=== PATIENT | female | born 1990 | race African-American/Black ===

== ENCOUNTER 2018-01-11 12:02 | Emergency (ER) | payer MEDICAID ==
[~2018-01-11] VITALS: Ht 167.6 cm; Wt 81.6 kg
[2018-01-11 12:16] VITALS: BP 116/82
== END 2018-01-11 15:18 | disposition home or self-care (01) ==
LOC: ER 12:02
DX: O20.9 Hemorrhage in early pregnancy, unspecified (principal); O99.331 Smoking (tobacco) complicating pregnancy, first trimester; Z3A.01 Less than 8 weeks gestation of pregnancy
CPT/HCPCS: 36415; 84702

== ENCOUNTER 2019-04-07 02:45 | Emergency (ER) | payer MEDICAID ==
[~2019-04-07] VITALS: Ht 170.2 cm; Wt 80.7 kg
[2019-04-07] MEDS ORDERED: ACETAMINOPHEN 500 MG TAB PO ONE (03:00)
[2019-04-07 03:07] VITALS: BP 123/80
== END 2019-04-07 06:41 | disposition left against medical advice (07) ==
LOC: ER 02:48
DX: M79.672 Pain in left foot (principal); Z53.21 Procedure and treatment not carried out due to patient leaving prior to being seen by health care provider; X58.XXXA Exposure to other specified factors, initial encounter; Y93.02 Activity, running; Y92.89 Other specified places as the place of occurrence of the external cause; Y99.8 Other external cause status

== ENCOUNTER 2024-09-24 15:24 | Emergency (ER) | payer MEDICAID, OTHER ==
[~2024-09-24] VITALS: Ht 167.6 cm; Wt 81.0 kg
[2024-09-24 16:05] VITALS: TEMP 98
[2024-09-24] MEDS: KETOROLAC TROMETH 60MG/2ML VIAL IM STA (16:38)
[2024-09-24] MEDS: HYDROcodone-ACET 5/325MG TAB PO ONE (16:45)
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
[2024-09-24 19:03] VITALS: BP 133/84; PULSE 85; RESP 20; O2SAT 99
== END 2024-09-24 19:05 | disposition home or self-care (01) ==
LOC: EDBD 15:24 → ER 15:30
DX: S80.01XA Contusion of right knee, initial encounter (principal); M79.18 Myalgia, other site; V89.2XXA Person injured in unspecified motor-vehicle accident, traffic, initial encounter; Y93.I9 Activity, other involving external motion; Y92.488 Other paved roadways as the place of occurrence of the external cause; Y99.8 Other external cause status
CPT/HCPCS: 96372; 99283; J1885